=== PATIENT | female | born 1970 | race Caucasian/White ===

== ENCOUNTER 2016-12-24 01:37 | Emergency (ER) | payer OTHER ==
[~2016-12-24] VITALS: Ht 167.6 cm; Wt 102.5 kg
[~2016-12-24 01:37] MED LIST: MECL-124 PO; PRED20TA PO
[2016-12-24] MEDS ORDERED: KETOROLAC 30 MG/ML VIAL IVP STA (01:53)
[2016-12-24] MEDS ORDERED: NS IV 1000 ML 1,000 ML IV ONE (01:53)
[2016-12-24] MEDS ORDERED: fentaNYL INJECTION 100 MCG/2 ML AMP IVP STA (01:53)
--- NOTE | 2016-12-24 02:07 | ED Abdominal Pain ---
General Chief Complaint: Abdominal/GI Problems Stated Complaint: LOWER ABD PAIN Nursing Triage Note: PT AMBULATED TO ROOM. PT COMPLAINS OF LEFT LOWER DULL ACHE ABD PAIN SINCE Wednesday. PT STATES THE PAIN WAS SO SEVERE THIS MORNING THAT IT WOKE HER UP FROM A SLEEP. Sepsis Screen: No Definite Risk Source of Information: Patient Exam Limitations: No Limitations History of Present Illness Time Seen By Provider: 01:49 Initial Comments Here with report of left lower quadrant abdominal pain that started Wednesday and cannot worse then got a little better. Was doing better yesterday and then went to bed last night okay but woke up shortly ago with severe pain that woke her up from sleep. She states that it's been sharp pain without and/or stabbing. Now it is waxing and waning and fairly significant. States that it's better when standing up and worse when sitting down but is having a difficult time finding a position of comfort. Denies nausea, vomiting , diarrhea or dysuria. Denies fever or chills. Never had pain like this before. Timing/Duration: 1-2 Days Severity/Quality: Moderate, Sharp, Stabbing Location: LLQ Radiation: No Radiation Activities at Onset: None Modifying Factors: Worsens With Movement Associated Symptoms: No Back Pain, No Chest Pain, No Fever/Chills, No Nausea/ Vomiting, No Shortness of Air, No Swelling/Mass in Abdomen, No Weakness Allergies and Home Medications Allergies Coded Allergies: amoxicillin (Unverified Allergy, Severe, RASH, 07/08/14) Home Medications Meclizine Hcl 25 Mg Tab, 1 TAB PO Q 4-6 HOURS PRN for DIZZINESS, #30 Ref 0 Prescribed by: PASHA GARCIA on 07/08/14 1700 Prednisone 20 Mg Tablet, 40 MG PO DAILY, #10 Ref 0 Prescribed by: PASHA GARCIA on 07/08/14 1700 Review of Systems Constitutional: see HPI, No chills, No fever EENTM: No Symptoms Reported Respiratory: No Symptoms Reported Cardiovascular: No Symptoms Reported Gastrointestinal: See HPI, Abdominal Pain, Denies Diarrhea, Denies Nausea, Denies Vomiting Genitourinary: See HPI Musculoskeletal: no symptoms reported Skin: no symptoms reported All Other Systems Reviewed Negative Unless Noted: Yes Past Xqcoile-Lqsaqr-Mpqfup Hx Patient Social History Alcohol Use: Denies Use Recreational Drug Use: No Smoking Status: Never a Smoker 2nd Hand Smoke Exposure: No Recent Foreign Travel: No Contact w/Someone Who Travel: No Recent Infectious Disease Expo: No Recent Hopitalizations: No Physical Abuse: No Sexual Abuse: No Seasonal Allergies Seasonal Allergies: No Surgeries History of Surgeries: Yes Surgeries: Tubal Ligation Respiratory History of Respiratory Disorde: No Cardiovascular History of Cardiac Disorders: No Neurological History of Neurological Disord: Yes Neurological Disorders: Headaches /Migraines Genitourinary History of Genitourinary Disor: No Gastrointestinal History of Gastrointestinal Di: No Musculoskeletal History of Musculoskeletal Dis: No Endocrine History of Endocrine Disorders: No HEENT History of HEENT Disorders: No Cancer History of Cancer: No Psychosocial History of Psychiatric Problem: No Suicide Risk Score: 0 Integumentary History of Skin or Integumenta: No Reviewed Nursing Assessment Reviewed/Agree w Nursing PMH: Yes Family Medical History Significant Family History: No Pertinent Family Hx Physical Exam Vital Signs VS - Last 72 Hours, by Label 12/24/16 01:40 Temp 97.3 Pulse 76 Resp 20 B/P (MAP) 127/71 Pulse Ox 95 O2 Delivery Room Air Capillary Refill : Less Than 3 Seconds General Appearance: WD/WN, no apparent distress HEENT: PERRL/EOMI, pharynx normal Neck: full range of motion, supple Respiratory: lungs clear, normal breath sounds Cardiovascular: regular rate, rhythm, no murmur Gastrointestinal: non tender, soft Extremities: non-tender, normal inspection Back: normal inspection, no CVA tenderness, no vertebral tenderness Neurologic/Psychiatric: alert, oriented x 3 Skin: normal color, warm/dry Progress/Results/Core Measures Results/Orders Lab Results Laboratory Tests Test 12/24/16 01:45 12/24/16 02:02 Range/Units Urine Color YELLOW Urine Clarity CLEAR Urine pH 8 5-9 Urine Specific [place] 1.015 L 1.016-1.022 Urine Protein NEGATIVE NEGATIVE Urine Glucose (UA) NEGATIVE NEGATIVE Urine Ketones NEGATIVE NEGATIVE Urine Nitrite NEGATIVE NEGATIVE Urine Bilirubin NEGATIVE NEGATIVE Urine Urobilinogen NORMAL NORMAL MG/DL Urine Leukocyte Esterase 2+ H NEGATIVE Urine RBC (Auto) 2+ H NEGATIVE Urine RBC NONE /HPF Urine WBC RARE /HPF Urine Squamous Epithelial Cells 25-50 H /HPF Urine Crystals PRESENT H /LPF Urine Amorphous Sediment LARGE SHIMA PHOSPHATE H /LPF Urine Bacteria TRACE /HPF Urine Casts NONE /LPF Urine Mucus NEGATIVE /LPF Urine Culture Indicated NO White Blood Count 8.9 4.3-11.0 10^3/uL Red Blood Count 4.98 4.35-5.85 10^6/uL Hemoglobin 13.8 11.5-16.0 G/DL Hematocrit 41 35-52 % Mean Corpuscular Volume 83 80-99 FL Mean Corpuscular Hemoglobin 28 25-34 PG Mean Corpuscular Hemoglobin Concent 33 32-36 G/DL Red Cell Distribution Width 14.1 10.0-14.5 % Platelet Count 266 130-400 10^3/uL Mean Platelet Volume 10.3 7.4-10.4 FL Neutrophils (%) (Auto) 60 42-75 % Lymphocytes (%) (Auto) 31 12-44 % Monocytes (%) (Auto) 7 0-12 % Eosinophils (%) (Auto) 1 0-10 % Basophils (%) (Auto) 0 0-10 % Neutrophils # (Auto) 5.4 1.8-7.8 X 10^3 Lymphocytes # (Auto) 2.8 1.0-4.0 X 10^3 Monocytes # (Auto) 0.7 0.0-1.0 X 10^3 Eosinophils # (Auto) 0.1 0.0-0.3 10^3/uL Basophils # (Auto) 0.0 0.0-0.1 10^3/uL Sodium Level 143 135-145 MMOL/L Potassium Level 3.9 3.6-5.0 MMOL/L Chloride Level 108 H 98-107 MMOL/L Carbon Dioxide Level 26 21-32 MMOL/L Anion Gap 9 5-14 MMOL/L Blood Urea Nitrogen 18 7-18 MG/DL Creatinine 0.80 0.60-1.30 MG/DL Estimat Glomerular Filtration Rate > 60 BUN/Creatinine Ratio 23 Glucose Level 113 H 70-105 MG/DL Calcium Level 9.6 8.5-10.1 MG/DL Total Bilirubin 0.9 0.1-1.0 MG/DL Aspartate Amino Transf (AST/SGOT) 13 5-34 U/L Alanine Aminotransferase (ALT/SGPT) 13 0-55 U/L Alkaline Phosphatase 66 40-136 U/L Total Protein 6.3 L 6.4-8.2 GM/DL Albumin 3.6 3.2-4.5 GM/DL My Orders Orders - CAMPO,QUENTIN D MD Cbc With Automated Diff (12/24/16 01:53) Comprehensive Metabolic Panel (12/24/16 01:53) Ua Culture If Indicated (12/24/16 01:53) Saline Lock/Iv-Start (12/24/16 01:53) Ns Iv 1000 Ml (Sodium Chloride 0.9%) (12/24/16 01:53) Fentanyl Injection (Sublimaze Injection (12/24/16 01:53) Ketorolac Injection (Toradol Injection) (12/24/16 01:53) Ct Abdomen/Pelvis W (12/24/16 03:04) Iohexol Injection (Omnipaque 350 Mg/Ml 1 (12/24/16 03:30) Ns (Ivpb) (Sodium Chloride 0.9% Ivpb Bag (12/24/16 03:30) Medications Given in ED Current Medications Medications Dose Ordered Sig/Vianney Route Start Time Stop Time Status Last Admin Dose Admin Iohexol 100 ml ONCE ONCE IV 12/24/16 03:30 12/24/16 03:31 DC 12/24/16 03:31 100 ML Sodium Chloride 100 ml ONCE ONCE IV 12/24/16 03:30 12/24/16 03:31 DC 12/24/16 03:31 80 ML Sodium Chloride 1,000 ml @ 0 mls/hr Q0M ONCE IV 12/24/16 01:53 12/24/16 01:55 DC 12/24/16 02:07 1,000 MLS/HR Vital Signs/I&O Vital Sign - Last 12Hours 12/24/16 01:40 Temp 97.3 Pulse 76 Resp 20 B/P (MAP) 127/71 Pulse Ox 95 O2 Delivery Room Air Blood Pressure Mean: 89 Progress Note : Progress Note Seen and evaluated. IV, labs and UA ordered. Anticipate CT scan. Toradol 30 mg IV, fentanyl 50 g IV and normal saline 1 L bolus ordered. Monitor patient.0410: Patient doing much better. Pending CT results. 0445: CT results noted and discussed with patient. Due to concerns of questioning diverticulitis we will initiate antibiotic treatment. Patient remains better. Discharged home with return precautions. Patient verbalize understanding of instructions and agreement with plan. Diagnostic Imaging Diagonstic Imaging: CT Plain Films/CT/US/NM/MRI: abdomen, pelvis Comments Fatty infiltration is seen anterior to the distal descending/proximal sigmoid colon in the region of colonic diverticulosis. No definitive evidence of abnormal wall thickening in this region. Image 19 of series 4 has finding of appearance of epiploic appendagitis. Hepatic steatosis is suggested. No significant free fluid, free air noted. The bowel is normal in caliber. Spleen , pancreas, gallbladder and kidneys are unremarkable. Departure Impression Impression: Primary Impression: Abdominal pain, acute, left lower quadrant Additional Impression: Diverticulitis Qualified Codes: K57.32 - Diverticulitis of large intestine without perforation or abscess without bleeding Disposition: HOME, SELF-CARE Condition: Improved Departure-Patient Inst. Decision time for Depature: 04:52 Referrals: MARC ANGULO MD (PCP/Family) Primary Care Physician Patient Instructions: Acute Abdomen (Belly Pain), Adult (DC), Diverticulitis ( DC) Add. Discharge Instructions: All discharge instructions reviewed with patient and/or family. Voiced understanding. Clear liquid diet for 24 hours and then advance as tolerated. Follow-up with your doctor in a few days for recheck. Return for worse pain, fever, vomiting, weakness, breathing problems or other concerns as needed. Take medications as directed. You may take Tylenol 1000 mg every 8 hours as needed for fever or pain. You may take ibuprofen 800 mg every 8 hours as needed for fever or pain. Drink plenty of fluids. Scripts Metronidazole (Metronidazole) 500 Mg Tablet 500 MG PO BID, #14 TAB 0 Refills Prov: QUENTIN HUFFMAN MD 12/24/16 Ciprofloxacin HCl (Ciprofloxacin HCl) 500 Mg Tablet 500 MG PO BID, #14 TAB Prov: QUENTIN HUFFMAN MD 12/24/16 Work/School Note: Work Release Form Date Seen in the Emergency Department: Dec 24, 2016 Return to Work: Dec 25, 2016 Restrictions: No Restrictions QUENTIN HUFFMAN MD Dec 24, 2016 02:07
[2016-12-24 02:21] LABS: BASOPHILS % (AUTO) 0 % (0-10); EOSINOPHILS # (AUTO) 0.1 10^3/uL (0.0-0.3); EOSINOPHILS % (AUTO) 1 % (0-10); LYMPHOCYTES # (AUTO) 2.8 X 10^3 (1.0-4.0); LYMPHOCYTES % (AUTO) 31 % (12-44); MEAN CORPUSCULAR HEMOGLOBIN 28 PG (25-34); MEAN CORPUSCULAR HGB CONC 33 G/DL (32-36); MEAN CORPUSCULAR VOLUME 83 FL (80-99); MEAN PLATELET VOLUME 10.3 FL (7.4-10.4); MONOCYTES # (AUTO) 0.7 X 10^3 (0.0-1.0); MONOCYTES % (AUTO) 7 % (0-12); NEUTROPHILS # (AUTO) 5.4 X 10^3 (1.8-7.8); NEUTROPHILS % (AUTO) 60 % (42-75); PLATELET COUNT 266 10^3/uL (130-400); RED BLOOD COUNT 4.98 10^6/uL (4.35-5.85); RED CELL DISTRIBUTION WIDTH 14.1 % (10.0-14.5); WHITE BLOOD COUNT 8.9 10^3/uL (4.3-11.0)
[2016-12-24 02:22] LABS: BILIRUBIN,URINE NEGATIVE (NEGATIVE); KETONES,URINE NEGATIVE (NEGATIVE); LEUKOCYTE ESTERASE ,URINE 2+ (NEGATIVE); NITRITE,URINE NEGATIVE (NEGATIVE); PH,URINE 8 (5-9); PROTEIN,URINE NEGATIVE (NEGATIVE); UROBILINOGEN,URINE NORMAL (NORMAL)
[2016-12-24 02:41] LABS: SQUAMOUS EPITHELIAL CELL,UR 25-50 /HPF; WBC,URINE RARE /HPF
[2016-12-24 02:42] LABS: ALANINE AMINOTRANSFERASE 13 U/L (0-55); ALBUMIN 3.6 GM/DL (3.2-4.5); ANION GAP 9 MMOL/L (5-14); ASPARTATE AMINO TRANSFERASE 13 U/L (5-34); BILIRUBIN,TOTAL 0.9 MG/DL (0.1-1.0); BLOOD UREA NITROGEN 18 MG/DL (7-18); BUN/CREATININE RATIO 23; CALCIUM 9.6 MG/DL (8.5-10.1); CARBON DIOXIDE 26 MMOL/L (21-32); CHLORIDE 108 MMOL/L (98-107); GFR ESTIMATED > 60; GLUCOSE 113 MG/DL (70-105); POTASSIUM 3.9 MMOL/L (3.6-5.0); SODIUM 143 MMOL/L (135-145); TOTAL PROTEIN 6.3 GM/DL (6.4-8.2)
[2016-12-24] MEDS ORDERED: IOHEXOL 350 MG/ML 100 ML (OMNIPAQUE 350) VIAL IV ONE (03:30)
[2016-12-24] MEDS ORDERED: NS 100 ML (IVPB) BAG IV ONE (03:30)
[2016-12-24] MEDS ORDERED: METR500T21 PO (04:53)
[2016-12-24] MEDS ORDERED: CIPR500T4 PO (04:53)
[2016-12-24 05:00] VITALS: BP 127/71
--- NOTE | 2016-12-24 06:55 | Diagnostic Imaging Report ---
PROCEDURE: CT abdomen and pelvis with contrast. TECHNIQUE: Multiple contiguous axial images were obtained through the abdomen and pelvis after administration of intravenous contrast. INDICATION: Left lower quadrant pain. Lung bases are clear. Liver appears normal. Gallbladder is decompressed. There is a moderate amount of food residue in the stomach. Spleen is not enlarged. Pancreas is normal. Kidneys and adrenals appear normal. There is a moderate of stool in the colon. There is colonic diverticulosis. There is some pericolonic induration at the distal descending colon that could be diverticulitis. The appendix is normal. Small bowel is not dilated. Uterus is present. Adnexa are unremarkable. There is no intraperitoneal free air or free fluid. IMPRESSION: Colonic diverticulosis with possible focal diverticulitis versus epiploic appendagitis in the left lower abdomen. I agree with the preliminary interpretation. Dictated by: Dictated on workstation # [id number]
== END 2016-12-24 05:00 | disposition home or self-care (01) ==
LOC: EDUNIT# 01:37 → ER 01:41
DX: K57.32 Diverticulitis of large intestine without perforation or abscess without bleeding (principal); G43.909 Migraine, unspecified, not intractable, without status migrainosus; Z98.51 Tubal ligation status
CPT/HCPCS: 36415; 74177; 80053; 81000; 85025; 96361; 96374; 96375